=== PATIENT | male | born 1950 | race Caucasian/White ===

== ENCOUNTER 2023-05-04 03:11 | Inpatient (IN) | payer OTHER, MEDICARE, BC ==
[~2023-05-04] VITALS: Ht 175.3 cm; Wt 92.7 kg
[2023-05-04] MEDS ORDERED: normal saline 1000ML IV soln IVB ONE (03:15)
[2023-05-04] MEDS ORDERED: LIDOcaine Viscous 15ml cup MM ONE (03:15)
[2023-05-04 03:39] LABS: BASOPHILS % (AUTO) 0.2 % (0-1); EOSINOPHILS % (AUTO) 0.1 % (0-6); HEMATOCRIT 37.8 % (42.0-52.0); LYMPHOCYTES # (AUTO) 0.8 X10'3 (1.1-4.8); LYMPHOCYTES % (AUTO) 6.5 % (21-51); MEAN CORPUSCULAR HEMOGLOBIN 26.1 PG (27.0-31.0); MEAN CORPUSCULAR HGB CONC 31.8 g/dL (33.0-36.5); MEAN CORPUSCULAR VOLUME 82.2 FL (78-98); MEAN PLATELET VOLUME 7.2 FL (7.4-10.4); MONOCYTES # (AUTO) 0.8 X10'3 (0-0.9); MONOCYTES % (AUTO) 6.8 % (2-12); NEUTROPHILS % (AUTO) 86.4 % (42-75); PLATELET COUNT 226 X10'3 (140-440); RED CELL DISTRIBUTION WIDTH 18.3 % (11.5-14.5); WHITE BLOOD COUNT 11.6 X10'3 (4.5-11.0)
[2023-05-04 03:54] LABS: ALANINE AMINOTRANSFERASE 16 U/L (12-78); ALBUMIN 3.7 G/DL (3.4-5.0); ALBUMIN/GLOBULIN RATIO 1.1 (1.1-1.5); ALKALINE PHOSPHATASE 69 IU/L (46-116); ANION GAP 13 (8-16); ASPARTATE AMINO TRANSFERASE 15 U/L (10-37); BILIRUBIN,TOTAL 0.6 MG/DL (0.1-1.0); BLOOD UREA NITROGEN 13 MG/DL (7-18); BUN/CREATININE RATIO 12.1 (10.0-20.0); CHLORIDE 103 MMOL/L (99-107); CREATININE 1.07 MG/DL (0.60-1.10); GLUCOSE 155 MG/DL (70-104); SODIUM 139 MMOL/L (135-145); TOTAL CARBON DIOXIDE 23.5 MMOL/L (24-32); TOTAL PROTEIN 7.2 G/DL (6.4-8.2); eCRCL 61 ML/MIN; eGFR 68 ML/MIN
[2023-05-04] MEDS ORDERED: acetaminophen 325mg tablet PO ONE (04:00)
[2023-05-04] MEDS ORDERED: dexamethasone sod phosphate 10mg/ml inj IV STA (04:31)
[2023-05-04] MEDS ORDERED: ondansetron/PF 4mg/2ml inj IV PRN (04:35)
[2023-05-04] MEDS ORDERED: bisacodyl 10mg suppository rectal RC PRN (04:35)
[2023-05-04] MEDS ORDERED: acetaminophen 650mg rectal suppository RC PRN (04:35)
[2023-05-04] MEDS ORDERED: HYDROmorphone inj. 0.5 MG/0.5 ML DISP.SYRIN IV PRN (04:35)
[2023-05-04] MEDS ORDERED: diphenhydrAMINE 25mg capsule PO PRN (04:35)
[2023-05-04] MEDS ORDERED: acetaminophen 325mg tablet PO PRN ×2 (04:35)
[2023-05-04] MEDS ORDERED: mag hydrox/Alum hydrox/simeth 30ml oral suspension PO PRN (04:35)
[2023-05-04] MEDS ORDERED: ondansetron 4mg rapidly disintigrating tab PO PRN (04:35)
[2023-05-04] MEDS: normal saline 1000ml 1,000 ML IV SCH ×2 (04:35→15:01)
[2023-05-04] MEDS ORDERED: diphenhydrAMINE 50 mg/ml inj IV PRN (04:35)
[2023-05-04] MEDS ORDERED: magnesium hydroxide 30ml (MOM) UD suspension PO PRN (04:35)
[2023-05-04] MEDS ORDERED: dextrose 50%-water 50ml dispensing syringe IV PRN ×2 (04:40)
[2023-05-04] MEDS ORDERED: DEXTROSE 15 GM of carb/4 tabs (each vial/BOTTLE has 4 tablets) PO PRN ×2 (04:40)
[2023-05-04] MEDS ORDERED: MESSAGE TO PHARMACY PO ONE (04:40)
[2023-05-04] MEDS ORDERED: glucagon, human recombinant 1mg kit SUBCUT PRN (04:40)
[2023-05-04] MEDS ORDERED: LIDOcaine/PRILOcaine 5gm cream TP PRN (04:45)
[2023-05-04] MEDS ORDERED: iohexol 300mg/ml 100ml inj. ONE (05:00)
[2023-05-04 05:12] LABS: PHOSPHORUS 3.4 MG/DL (2.3-4.5); PRO BRAIN NATRIURETIC PEPTIDE 238 PG/ML (0-125); THYROID STIMULATING HORMONE 1.22 ulU/ml (0.34-4.50)
[2023-05-04 05:31] LABS: HEMOGLOBIN A1C 7.4 % (4.5-6.2)
[2023-05-04] MEDS: clotrimazole 10mg troche MM SCH ×6 (06:30→22:02)
[2023-05-04] MEDS ORDERED: pantoprazole 40mg Tablet.DR PO SCH (07:30)
[2023-05-04 07:46] LABS: APTT 27 SECONDS (22-32); PROTHROMBIN TIME 10.3 SECONDS (9.0-12.0)
[2023-05-04] MEDS: docusate sod 100mg capsule PO SCH ×2 (09:04→20:00)
[2023-05-04] MEDS: heparin, porcine 5000 units/ml vial SQ SCH ×2 (09:04→17:09)
[2023-05-04] MEDS: atorvastatin 20mg tablet PO SCH (09:06)
[2023-05-04] MEDS: lisinopril 10 MG tablet PO SCH (09:06)
[2023-05-04 09:18] LABS: BILIRUBIN,URINE NEGATIVE (Neg); CLARITY,URINE CLEAR (Clear); COLOR,URINE YELLOW (Yellow); GLUCOSE, URINE >=1000 mg/dl (Neg); KETONES,URINE >=80 mg/dl (Neg); LEUKOCYTE ESTERASE ,URINE NEGATIVE (Neg); NITRITES, URINE NEGATIVE (Neg); OCCULT BLOOD,URINE TRACE-INTACT (Neg); PH,URINE 5.5 (4.8-8.0); PROTEIN,URINE 100 mg/dl (Neg); UROBILINOGEN,URINE 0.2 E.U/dL (0.2-1.0)
[2023-05-04 09:25] LABS: UA COLLECTION TYPE CLN CATCH MIDSTREAM
[2023-05-04 09:26] LABS: SQUAMOUS EPITHELIAL CELL,UR FEW /LPF (FEW)
[2023-05-04 09:27] LABS: BACTERIA,URINE FEW /HPF (Neg); RBC,URINE 0-2 /HPF (0-2)
[2023-05-04 09:28] LABS: WBC,URINE 0-4 /HPF (0-4)
[2023-05-04] MEDS ORDERED: hydrALAZINE 20mg/ml inj. IV PRN (09:40)
[2023-05-04] MEDS ORDERED: LIDOcaine Viscous 15ml cup MM PRN (09:45)
[2023-05-04 09:54] LABS: HIV ANTIBODY 1&2 RAPID NON-REACTIVE (Neg)
[2023-05-04] MEDS ORDERED: MESSAGE TO NURSING PO ONE (10:00)
--- NOTE | 2023-05-04 17:10 | NUR ---
PT EDUACTED ON HEPARIN ADMIN TO PREVENT BLD CLOT ,PT STATED "I DON'T NEED IT".NOTIFIED PRIMARY RN.
[2023-05-04] MEDS ORDERED: PANT-47 PO (19:05)
[2023-05-04] MEDS ORDERED: EMPA25TA PO (19:05)
[2023-05-04] MEDS ORDERED: ALOG25TA PO (19:05)
[2023-05-04] MEDS ORDERED: HYDR12.55 PO (19:05)
[2023-05-04] MEDS ORDERED: LISI40TA13 PO (19:05)
[2023-05-04] MEDS ORDERED: METF-438 PO (19:05)
[2023-05-04] MEDS ORDERED: AMLO10TA PO (19:05)
[2023-05-04] MEDS ORDERED: CLOT10TR PO (19:05)
[2023-05-04] MEDS ORDERED: GLIP5TAB13 PO (19:05)
[2023-05-04] MEDS ORDERED: ROSU20TA73 PO (19:05)
[2023-05-04] MEDS: insulin Lispro (HumaLOG) vial - multi-dose SQ SCH (20:47)
[2023-05-04] MEDS ORDERED: temazepam 15mg capsule PO PRN (21:00)
[2023-05-04] MEDS ORDERED: insulin glargine (Lantus) pen - multi-dose SQ SCH (21:00)
--- NOTE | 2023-05-04 22:00 | NUR ---
pt placed onto in-patien bed
[2023-05-05] MEDS: normal saline 1000ml 1,000 ML IV SCH ×2 (00:35→07:18)
[2023-05-05] MEDS: clotrimazole 10mg troche MM SCH ×2 (06:03→11:08)
[2023-05-05] MEDS: heparin, porcine 5000 units/ml vial SQ SCH ×3 (07:16→07:31)
[2023-05-05] MEDS: atorvastatin 20mg tablet PO SCH (07:16)
[2023-05-05] MEDS: lisinopril 10 MG tablet PO SCH (07:17)
[2023-05-05] MEDS: docusate sod 100mg capsule PO SCH (07:18)
[2023-05-05] MEDS ORDERED: pantoprazole 40MG/NS 100ML BAG 100 ML IV SCH (08:00)
[2023-05-05] MEDS: insulin Lispro (HumaLOG) vial - multi-dose SQ SCH (09:57)
[2023-05-05 10:08] LABS: MEAN PLATELET VOLUME 7.5 FL (7.4-10.4)
[2023-05-05 10:09] LABS: BASOPHILS % (AUTO) 0 % (0-1); EOSINOPHILS % (AUTO) 0.1 % (0-6); LYMPHOCYTES # (AUTO) 0.9 X10'3 (1.1-4.8); LYMPHOCYTES % (AUTO) 8.1 % (21-51); MEAN CORPUSCULAR HEMOGLOBIN 26.3 PG (27.0-31.0); MEAN CORPUSCULAR HGB CONC 31.7 g/dL (33.0-36.5); MEAN CORPUSCULAR VOLUME 82.9 FL (78-98); MONOCYTES # (AUTO) 0.6 X10'3 (0-0.9); MONOCYTES % (AUTO) 5.4 % (2-12); NEUTROPHILS # (AUTO) 9.4 X10'3 (1.8-7.7); NEUTROPHILS % (AUTO) 86.4 % (42-75); PLATELET COUNT 241 X10'3 (140-440); RED BLOOD COUNT 4.58 X10'6 (4.70-6.10); RED CELL DISTRIBUTION WIDTH 18.5 % (11.5-14.5); WHITE BLOOD COUNT 10.9 X10'3 (4.5-11.0)
[2023-05-05 10:16] LABS: ALANINE AMINOTRANSFERASE 16 U/L (12-78); ALBUMIN 3.3 G/DL (3.4-5.0); ALBUMIN/GLOBULIN RATIO 0.8 (1.1-1.5); ALKALINE PHOSPHATASE 90 IU/L (46-116); ANION GAP 10 (8-16); ASPARTATE AMINO TRANSFERASE 14 U/L (10-37); BILIRUBIN,TOTAL 0.4 MG/DL (0.1-1.0); BLOOD UREA NITROGEN 22 MG/DL (7-18); BUN/CREATININE RATIO 18.8 (10.0-20.0); CALCIUM 8.9 MG/DL (8.5-10.1); CHLORIDE 103 MMOL/L (99-107); CHOL/HDL RATIO 2.8 (0.00-4.99); CHOLESTEROL 163 MG/DL (0-200); CREATININE 1.17 MG/DL (0.60-1.10); GLUCOSE 228 MG/DL (70-104); HDL CHOLESTEROL 59 MG/DL (35-60); LDL CHOLESTEROL 80 MG/DL (50-100); POTASSIUM 4.1 MMOL/L (3.5-5.1); SODIUM 138 MMOL/L (135-145); TOTAL CARBON DIOXIDE 24.9 MMOL/L (24-32); TOTAL PROTEIN 7.4 G/DL (6.4-8.2); TRIGLYCERIDES 101 MG/DL (20-135); eCRCL 55 ML/MIN; eGFR 61 ML/MIN
--- NOTE | 2023-05-05 10:17 | NUR ---
Dr Pinzon at bedside assessing the patient at this time.
[2023-05-05 10:36] LABS: ANISOCYTOSIS 2+; ELLIPTOCYTES FEW; PLATELET ESTIMATE NORMAL
[2023-05-05] MEDS ORDERED: CLOT10TR6 MM (11:10)
[2023-05-05] MEDS ORDERED: AMOX-100 PO ×2 (11:10)
[2023-05-05] MEDS ORDERED: augmentin PO (11:53)
[2023-05-05 13:28] VITALS: BP 108/81; PULSE 66; RESP 16; TEMP 98.3; O2SAT 98
== END 2023-05-05 15:05 | disposition home or self-care (01) | DRG 153 ==
LOC: ER 03:13 → ED HOLD 04:38
PROVIDERS: ADMIT Family Medicine; ATTEND Internal Medicine
PROC: BW2F1ZZ Computerized Tomography (CT Scan) of Neck using Low Osmolar Contrast (ICD-10-PCS; principal; 2023-05-04)
DX: J02.8 Acute pharyngitis due to other specified organisms (principal); E86.0 Dehydration; D64.9 Anemia, unspecified; I10 Essential (primary) hypertension; J02.9 Acute pharyngitis, unspecified; E78.00 Pure hypercholesterolemia, unspecified; E11.9 Type 2 diabetes mellitus without complications; Z88.6 Allergy status to analgesic agent; Z79.899 Other long term (current) drug therapy
CPT/HCPCS: 36415; 70491; 80053; 80061; 81001; 82948; 83036; 83605; 83735; 83880; 84100; 84443; 85008; 85025; 85610; 85730; 86703; 87040; 99285; C9113; G0378; J1100; J1644; J2405; J3490; J7030; Q9967